=== PATIENT | male | born 1955 | race Caucasian/White ===

== ENCOUNTER 2018-01-08 18:41 | Emergency (ER) | payer OTHER ==
[~2018-01-08] VITALS: Ht 177.8 cm; Wt 77.7 kg
[~2018-01-08 18:41] MED LIST: ASPCH81X PO; LSN/10125 PO; MULT-506 PO
[2018-01-08 18:46] VITALS: BP 153/99; TEMP 36.8; Ht 177.8 cm; Wt 77.7 kg
[2018-01-08] MEDS ORDERED: PROPARACAINE HCL 0.5% OP SOLN 15 ML BTL OP STA (19:08)
[2018-01-08] MEDS ORDERED: CIPROFLOXACIN HCL 0.3% OP SOLN 2.5 ML BTL OP STA (19:23)
--- NOTE | 2018-01-08 20:06 | EMERGENCY ROOM VISIT NOTE ---
ED Visit Note First contact with patient: 18:58 CHIEF COMPLAINT: Foreign body sensation of the left eye HISTORY OF PRESENT ILLNESS: This 62-year-old male patient presents to the emergency department, ambulatory, complaining of pain and foreign body sensation in the left eye. 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 He states he felt something in his left eye all of a sudden. He drove to [employer] and states the eye was stained. He was told there was nothing in the eye, it was flushed, and he was sent home. The patient states on his way home, the Alcaine drops were off, and he began experiencing significantly worsening pain, foreign body sensation, and tearing in the left eye, so the patient decided to come to the emergency department for evaluation. There has been a constant moderate pain and irritation, redness and tearing in the eye. The vision has not been decreased over all. The patient does not wear contacts. The patient rates the pain as 9/ 10. The patient has none had previous injuries to this eye. Tetanus shot is up to date. REVIEW OF SYSTEMS: A 6 system review of systems was completed with positives and pertinent negatives listed in the HPI. ALLERGIES: None MEDICATIONS: Lipitor, lisinopril/hydrochlorothiazide, aspirin PMH: Hypertension, hyperlipidemia SOCIAL HISTORY: The patient lives locally with family. He denies drug, alcohol , tobacco use. PHYSICAL EXAM: Vital Signs: Reviewed Nurse's notes, vital signs stable. Visual acuity 20/20 bilaterally. GENERAL: This is a 62-year-old white male, in no acute distress, but who is uncomfortable from the eye problem. Well-developed well-nourished. EYES: The pupils are equal round and reactive to light and accommodation. EOMs are full and without tenderness. There is significant watery discharge from the left eye which is injected. There is no obvious laceration, foreign body, or abrasion visible on the cornea. There is a small, black foreign body visible under the eyelid after lid eversion. No foreign body was seen embedded in the cornea under slit lamp exam. The cornea was clear and no hyphema was seen. Fluorescein uptake was observed with ultraviolet light insignificant for a corneal abrasion. EMERGENCY DEPARTMENT COURSE: I examined the patient. Alcaine 2 drops were placed in the patient's left eye. A slit lamp exam was performed as above. Verbal consent was obtained to perform the procedure. The foreign body was removed from the eyelid using a moistened cotton swab. Ciloxan two drops was placed in the patient's left eye. The patient was discharged home in good condition. I attest that I have personally reviewed the patient's current medication list. Patient was found to have normal blood pressure on screening and does not require follow-up. Etiologies such as corneal foreign body, conjunctivitis, corneal abrasion, uveitis, glaucoma, periorbital cellulitis, orbital cellulitis, abscess, trauma, as well as others were entertained. DIAGNOSIS: Left corneal foreign body The chart was completed utilizing [employer] Speech voice recognition software. Grammatical errors, random word insertions, pronoun errors, and incomplete sentences are an occasional consequence of this system due to software limitations, ambient noise, and hardware issues. Any formal questions or concerns about the content, text, or information contained within the body of this dictation should be directly addressed to the provider for clarification. Current/Historical Medications Scheduled Aspirin (Aspirin Chewable), 81 MG PO QAM Hctz/Lisinopril (Lisinopril/Hctz 10/12.5 Mg), 0.5 MG PO QAM Multivitamin (Multivitamin), 1 TAB PO QAM Allergies Coded Allergies: No Known Allergies (Verified , 04/29/15) Vital Signs Date Time Temp Pulse Resp B/P (MAP) Pulse Ox O2 Delivery O2 Flow Rate FiO2 01/08/18 20:20 73 98 01/08/18 18:46 36.8 93 18 153/99 99 Room Air Medications Administered Medications (Trade) Dose Ordered Sig/Bobbi Route Start Time Stop Time Status Last Admin Dose Admin Ciprofloxacin HCl (Ciprofloxacin 0.3% Op Soln) 2 drops NOW STAT OP 01/08/18 19:23 01/08/18 19:24 DC 01/08/18 20:01 2 DROPS Departure Information Impression Primary Impression: Foreign body of left eye Dispostion Home / Self-Care Condition GOOD Referrals Marivel Ferrara M.D. (PCP) Zaid Salinas M.D. Patient Instructions ED Foreign Body Cornea, My [facility] Additional Instructions You have been treated in the Emergency Department today for a foreign body of the left eye. This was successfully removed under the lid. There is no obvious abrasion noted on examination, however I do recommend starting antibiotic drops due to the length of time the foreign body was present. You have been prescribed Ciloxan eye drops. This is an antibiotic which will help to prevent an infection from developing in your affected eye. You should use 2 drops in the affected eye every 2 hours while awake for the first 2 days, then every 4 hours for the remaining 5 days. This is a total of a 7-day course for these antibiotic eye drops. For pain control, you can use the following [id number] medicines (if >12 yo): Ibuprofen(Motrin, Advil) may be used for fever or pain. Use 600mg every six hours as needed. Take with food. Avoid using more than 2400mg in a 24 hour period. Do not use 2400mg per day for more than three consecutive days without physician direction. Prolonged inappropriate use can lead to stomach upset or ulcers. (AND/OR) Acetaminophen(Tylenol) may be used for fever or pain. Use 1000mg every six hours as needed. Avoid using more than 3000mg in a 24 hour period. You should relax in a quiet, dark place for the rest of the day. You should wear sunglasses while outside for the next few days until your eyes are not as sensitive to the light. You should schedule a follow-up appointment in 2-3 days with your Primary Care Provider or established Eye Doctor ([employer] Press Operator) for further evaluation and treatment of your Corneal Abrasion. Return to the Emergency Department if your current symptoms worsen despite treatment course outlined above, or if you develop any of the following symptoms : intractable pain, visual disturbances, loss of vision, increased redness, swelling, drainage, or if you develop a fever. Problem Qualifiers Primary Impression: Foreign body of left eye Encounter type: initial encounter Qualified Codes: T15.92XA - Foreign body on external eye, part unspecified, left eye, initial encounter
[2018-01-08 20:20] VITALS: PULSE 73; O2SAT 98
== END 2018-01-08 20:20 | disposition home or self-care (01) ==
LOC: C.EDB 18:43 → C.EDD 20:20
DX: T15.02XA Foreign body in cornea, left eye, initial encounter (principal); X58.XXXA Exposure to other specified factors, initial encounter; I10 Essential (primary) hypertension; E78.5 Hyperlipidemia, unspecified; Z79.899 Other long term (current) drug therapy; Z79.82 Long term (current) use of aspirin